=== PATIENT | male | born 1995 | race Caucasian/White ===

== ENCOUNTER 2024-01-07 16:15 | Emergency (ER) | payer OTHER ==
[2024-01-07] MEDS ORDERED: Sodium Chloride 0.9% 10 ML Syringe FLUSH PRN ×2 (18:00→18:06)
[2024-01-07] MEDS ORDERED: Iopamidol 612 MG/ML 100 ML Bottle IV SCH (18:15)
[2024-01-07] MEDS ORDERED: Sodium Chloride 0.9% 100 ML IV SCH (18:15)
[2024-01-07] MEDS ORDERED: Sodium Chloride 0.9% 1,000 ML IV SCH (18:15)
== END 2024-01-07 18:32 ==
LOC: JP.ED 16:15
DX: T18.5XXA Foreign body in anus and rectum, initial encounter (principal); F17.210 Nicotine dependence, cigarettes, uncomplicated; Z86.19 Personal history of other infectious and parasitic diseases
CPT/HCPCS: 74018; 74018-26; 99284

== ENCOUNTER 2024-01-08 09:42 | Observation (INO) | payer MEDICAID, OTHER ==
[2024-01-08] MEDS: Sodium Chloride 0.9% 1,000 ML IV SCH (11:29)
[2024-01-08] MEDS: ceFAZolin 2 GM in Premix Bag 1 BAG IV ONE (11:29)
[2024-01-08] MEDS: metroNIDAZOLE/Normal Saline 500 MG in Premix Bag 1 BAG IV ONE (11:31)
[2024-01-08 11:38] LABS: HEMOGLOBIN 13.8 g/dL (12.9-16.9); MEAN CORPUSCULAR HEMOGLOBIN 32.4 pg (31.6-35.5); MEAN CORPUSCULAR HGB CONC 35.4 g/dL (31.6-35.5); MEAN CORPUSCULAR VOLUME 91.5 fL (81.4-99.0); RED BLOOD CELL COUNT 4.26 M/uL (4.14-5.76)
[2024-01-08 11:54] LABS: ANION GAP 8.7 mmol/L (5.0-14.0); EST CRCL DRUG DOSING (CG) 98.88 mL/min; POTASSIUM,K 3.9 mmol/L (3.6-5.2)
[2024-01-08] MEDS ORDERED: Midazolam 1 MG/ML 2 ML SDV ONE (12:03)
[2024-01-08] MEDS ORDERED: fentaNYL 250 MCG/5 ML SDV ONE (12:03)
[2024-01-08] MEDS ORDERED: Ondansetron 4 MG/2 ML SDV ONE (12:04)
[2024-01-08] MEDS ORDERED: Dexamethasone 4 MG/ML SDV ONE (12:04)
[2024-01-08] MEDS ORDERED: Neostigmine Methylsulfate 10 MG/10 ML MDV ONE (12:04)
[2024-01-08] MEDS ORDERED: Glycopyrrolate 0.2 MG/ML 5 ML MDV ONE (12:04)
[2024-01-08] MEDS ORDERED: Propofol 200 MG/20 ML SDV ONE (12:04)
[2024-01-08] MEDS ORDERED: Rocuronium 50 MG/5 ML Vial ONE (12:04)
[2024-01-08] MEDS ORDERED: Succinylcholine 200 MG/10 ML MDV ONE (12:04)
[2024-01-08] MEDS: Bupivacaine 0.5%/EPINEPHrine 1:200,000 50 ML MDV ONE (12:37)
[2024-01-08] MEDS: Ropivacaine 30 ML, dexAMETHasone 8 MG, EPINEPHrine 0.4 MG, Sodium Chloride 0.9% 47.6 ML NERVRT SCH (12:47)
[2024-01-08] MEDS ORDERED: Ketorolac 30 MG/ML SDV ONE ×2 (13:06)
[2024-01-08] MEDS ORDERED: Acetaminophen 325 MG Tab PO PRN (13:11)
[2024-01-08] MEDS ORDERED: diphenhydrAMINE 50 MG/ML SDV IVPUSH PRN (13:11)
[2024-01-08] MEDS ORDERED: hydrOXYzine HCL 100 MG/2 ML SDV IM PRN (13:11)
[2024-01-08] MEDS ORDERED: Benzocaine/Cetylpyridinium/Menthol Lozenge MUCMEM PRN (13:11)
[2024-01-08] MEDS ORDERED: Promethazine 25 MG/ML SDV IM PRN (13:11)
[2024-01-08] MEDS ORDERED: Zolpidem 5 MG Tab PO PRN (13:11)
[2024-01-08] MEDS ORDERED: fentaNYL 100 MCG/2 ML SDV IVPUSH PRN (13:11)
[2024-01-08] MEDS ORDERED: fentaNYL 50 MCG/ML SDV IVPUSH PRN (13:21)
[2024-01-08] MEDS: Indocyanine Green 25 MG SDV IV ONE (13:34)
[2024-01-08] MEDS ORDERED: Haloperidol Lactate 5 MG/ML SDV IVPUSH PRN (18:37)
[2024-01-08] MEDS: OLANZapine 5 MG Tab PO STA (19:48)
[2024-01-08 23:23] LABS: AMPHETAMINES SCREEN, URINE NEGATIVE (NEGATIVE); BARBITURATE SCREEN,URINE NEGATIVE (NEGATIVE); BENZODIAZEPINES SCREEN,URINE NEGATIVE (NEGATIVE); METHADONE SCREEN, URINE NEGATIVE (NEGATIVE); METHAMPHETAMINES SCREEN, URINE NEGATIVE (NEGATIVE); OXYCODONE SCREEN,URINE NEGATIVE (NEGATIVE); PROPOXYPHENE SCREEN,URINE NEGATIVE (NEGATIVE); THC SCREEN,URINE 50 NG/ML NEGATIVE (NEGATIVE)
[2024-01-09 01:51] LABS: APPEARANCE,URINE CLEAR (CLEAR); BILIRUBIN,URINE NEGATIVE (NEGATIVE); COLOR,URINE YELLOW (YELLOW); GLUCOSE,URINE NEGATIVE (NEGATIVE); KETONES,URINE NEGATIVE (NEGATIVE); LEUKOCYTE ESTERASE,URINE NEGATIVE (NEGATIVE); NITRITE,URINE NEGATIVE (NEGATIVE); OCCULT BLOOD,URINE NEGATIVE (NEGATIVE); PROTEIN,URINE NEGATIVE (NEGATIVE); UROBILINOGEN,URINE 0.2 EU/dL (0.2-1.0)
[2024-01-09 02:19] LABS: AMORPHOUS SEDIMENT,URINE NOT SEEN; BACTERIA,URINE RARE; EPITHELIAL CELLS,URINE FEW; MUCUS,URINE NOT SEEN; RBC,URINE 0-5 (0-5); WBC,URINE 0-5 (0-5)
[2024-01-09 06:02] LABS: HEMATOCRIT 37.2 % (38.4-49.7); HEMOGLOBIN 12.9 g/dL (12.9-16.9); MEAN CORPUSCULAR HGB CONC 34.7 g/dL (31.6-35.5); MEAN CORPUSCULAR VOLUME 92.3 fL (81.4-99.0); PLATELET COUNT,PLT 207 K/uL (130-375); RED BLOOD CELL COUNT 4.03 M/uL (4.14-5.76); WHITE BLOOD CELL COUNT,WBC 18.8 K/uL (3.2-11.0)
[2024-01-09 06:28] LABS: BAND ABSOLUTE MAN 0.19 K/uL; BAND PERCENT MAN 1 % (5-11); LYMPHOCYTES ABSOLUTE MAN 0.75 K/uL (0.8-3.3); LYMPHOCYTES PERCENT MAN 4 % (24-44); MONOCYTES ABSOLUTE MAN 0.94 K/uL (0.20-0.90); MONOCYTES PERCENT MAN 5 % (2-6); NEUTROPHILS ABSOLUTE MAN 16.92 K/uL (1.0-7.6); SEG NEUTROPHILS PERCENT MAN 90 % (36-66)
[2024-01-09 06:31] LABS: SEDIMENTATION RATE MANUAL 9 mm/hr (0-20)
[2024-01-09 06:47] LABS: A/G RATIO 1.2 (1.2-2.2); ALANINE AMINOTRANSFERASE,ALT 94 U/L (12-78); ALBUMIN 3.4 g/dL (3.4-5.0); ALKALINE PHOSPHATASE 51 U/L (46-116); ASPARTATE AMNIOTRANSFERASE,AST 41 U/L (15-37); BILIRUBIN TOTAL 1.1 mg/dL (0.2-1.0); BLOOD UREA NITROGEN,BUN 10 mg/dL (7-18); CALCIUM 8.5 mg/dL (8.5-10.1); CARBON DIOXIDE,CO2 27 mmol/L (21-32); CHLORIDE,CL 104 mmol/L (100-108); CREATININE 0.9 mg/dL (0.8-1.3); EST CRCL DRUG DOSING (CG) 109.86 mL/min; ESTIMATED GFR 120 mL/min (>60); GLUCOSE RANDOM 106 mg/dL (74-106); POTASSIUM,K 4.4 mmol/L (3.6-5.2); PROTEIN TOTAL,TP 6.2 g/dL (6.4-8.2); SODIUM,NA 139 mmol/L (140-148); TSH ULTRASENSITIVE 0.905 uIU/mL (0.358-3.740)
[2024-01-09 06:54] LABS: ANION GAP 12.4 mmol/L (5.0-14.0)
[2024-01-09] MEDS: Acetaminophen/oxyCODONE 325-5 MG Tab PO PRN ×2 (08:42→21:13)
[2024-01-09] MEDS: Acetaminophen/oxyCODONE 325-5 MG Tab PO ONE (09:04)
[2024-01-09] MEDS: OLANZapine 5 MG Tab PO SCH ×2 (11:58→21:05)
[2024-01-09] MEDS: Bisacodyl 5 MG Tab PO PRN (21:08)
[2024-01-09] MEDS: Melatonin 3 MG Tab PO PRN (21:13)
== END 2024-01-10 14:05 | disposition home or self-care (01) ==
LOC: JP.SDS 09:42 → JP.MS 13:12
PROVIDERS: ADMIT Surgery; ATTEND Surgery
DX: T18.4XXA Foreign body in colon, initial encounter (principal); F17.210 Nicotine dependence, cigarettes, uncomplicated; Z79.899 Other long term (current) drug therapy; Y83.8 Other surgical procedures as the cause of abnormal reaction of the patient, or of later complication, without mention of misadventure at the time of the procedure
CPT/HCPCS: 36415; 44025; 64488; 74018; 74176; 80048; 80053; 80305; 81001; 82607; 84443; 85025; 85027; 85651; 87635; A9270; J0171; J0330; J0690; J1100; J1836; J1885; J2250; J2405; J2704; J2710; J2795; J3010; J3490; J7030; 99222; 99232; U0002